=== PATIENT | female | born 1965 | race Caucasian/White ===

== ENCOUNTER 2016-12-23 07:43 | Emergency (ER) | payer BC ==
[2016-12-23 08:00] VITALS: BP 114/72
--- NOTE | 2016-12-23 12:12 | UC ---
Marilee Yuen Alok, scribed for Josselyn Shi DO on 12/23/16 at 0758 . Upper Extremity HPI - HPI Summary HPI Summary: 51F presents to the [facility] with decreased sensation described as dull/tingling on the left side of her body. Pt states her sensation is decreased but not absent entirely. Pt states that at 0630 this morning the pt woke up to a numbness in her left hand, followed by left arm, left cheek, left thigh, and left calf numbness minutes later after taking a shower. Her lower extremity numbness is described as on the outside of her thigh but circumferential from the knee to her toes. Pt also notes one episode of chest tightness three nights ago lasting one hour not accompanied by SOB, nausea, diaphoresis, dizziness or left neck/jaw /arm pain. Today, pt denies slurred speech or weakness. Originally pt denied confusion but reorted confusion half way through encounter. Pt denies SOB, cough, sore throat, abd pain, or eye drainage. Pt denies dizziness. PMHx includes recent L1 fracture 1 month ago for which she takes hydrocodone. Pt states took her hydrocodone this morning. Pt also takes Prozac for anxiety/ depression. Pt states she does not normally get decreased sensation with her anxiety. - History of Current Complaint Stated Complaint: NUMBNESS Hx Obtained From: Patient Onset/Duration: Lasting Hours, Still Present Severity Initially: Moderate Severity Currently: Moderate Pain Intensity: 0 Location Of Pain: Is Discrete @ - left hand, left leg, left cheek Character: Dull - numbness Aggravating Factor(s): Nothing Alleviating Factor(s): Nothing Associated Signs And Symptoms: Positive: Numbness/Tingling. Negative: Swelling , Redness, Bruising, Fever, Weakness - Allergies/Home Medications Allergies/Adverse Reactions: Allergies Allergy/AdvReac Type Severity Reaction Status Date / Time No Known Allergies Allergy Verified 11/18/13 11:11 Home Medications: Home Medications HYDROcodone/ACETAMIN 5-325 MG* [[place] 5-325 TAB*] 1 tab PO Q12HR PRN MDD 2 tabs 12/23/16 [History Confirmed 12/23/16] PMH/Surg Hx/FS Hx/Imm Hx Psychological History: Anxiety, Depression - Family History Known Family History: Positive: Hypertension, Diabetes, Other - Blood Clot - Social History Lives: With Family Alcohol Use: Occasionally Substance Use Type: None Smoking Status (MU): Never Smoked Tobacco Review of Systems Constitutional: Negative Skin: Negative ENT: Negative Respiratory: Negative Cardiovascular: Chest Pain Gastrointestinal: Negative Motor: Negative Neurovascular: Negative Neurological: Numbness All Other Systems Reviewed And Are Negative: Yes Physical Exam Triage Information Reviewed: Yes Appearance: Well-Appearing, No Pain Distress, Well-Nourished Vital Signs: Initial Vital Signs Temp 98.9 F 12/23/16 07:57 Pulse 79 12/23/16 07:57 Resp 18 12/23/16 07:57 BP 114/72 12/23/16 07:57 Pulse Ox 97 12/23/16 07:57 Vital Signs Reviewed: Yes Eyes: Positive: Conjunctiva Clear. Negative: Discharge ENT: Positive: Hearing grossly normal. Negative: Muffled/hoarse voice Neck: Positive: Supple, Nontender Respiratory: Positive: Lungs clear, Normal breath sounds, No respiratory distress, No accessory muscle use Cardiovascular: Positive: RRR, No Murmur Musculoskeletal Exam: Normal Neurological: Positive: Other: - A&Ox3, CN II-XII INTACT, SENSORY MOTOR INTACT, REFLEXES INTACT, NO CEREBELLAR SIGNS, FACIAL SYMMETRY, NEGATIVE ROMBERG, NORMAL GAIT Psychological Exam: Normal Psychological: Positive: Age Appropriate Behavior Skin Exam: Normal Skin: Positive: Other - warm, dry, normal color Diagnostics - EKG Cardiac Rate: NL - 77 bpm Cardiac Rhythm: Sinus: Normal - TIME: 0741. No ST depressions Upper Extremity Course/Dx - Differential Dx/Diagnosis Differential Diagnosis/HQI/PQRI: Other - cva, lyme, painic Provider Diagnoses: Paresthesia Discharge - Discharge Plan Condition: Stable Disposition: TRANS HIGHER L OF CARE FAC Referrals: Easton Cool MD [Primary Care Provider] - The documentation as recorded by the Marilee littlejohn Alok accurately reflects the service I personally performed and the decisions made by , Josselyn Shi DO.
== END 2016-12-23 08:07 | disposition short-term general hospital (02) ==
LOC: UCEAST 07:43
DX: F41.8 Other specified anxiety disorders (principal); R20.9 Unspecified disturbances of skin sensation
CPT/HCPCS: 93005; 99213; G0463

== ENCOUNTER 2016-12-23 08:28 | Observation (INO) | payer BC ==
[2016-12-23] MEDS ORDERED: NS 0.9% 1000 ML* 1,000 ML IV SCH (09:15)
[2016-12-23 09:24] LABS: Hematocrit 38 % (35-47); Hemoglobin 12.6 g/dl (12.0-16.0); Mean Corpuscular HGB Conc 33 g/dl (31-36); Mean Corpuscular Hemoglobin 29 pg (27-31); Mean Corpuscular Volume 86 fL (80-97); Mean Platelet Volume 8 um3 (7.4-10.4); Red Blood Count 4.43 10^6/ul (4.0-5.4); Red Cell Distribution Width 14 % (10.5-15); White Blood Count 5.3 10^3/ul (3.5-10.8)
[2016-12-23 09:36] LABS: Albumin 3.5 g/dL (3.2-5.2); BUN/Creatinine Ratio 15.5 (8-20); C Reactive Protein 2.41 mg/L (< 5.00); Calcium 9.4 mg/dL (8.6-10.3); EGFR African American 92.3 (>60); EGFR Non-African American 71.8 (>60); Globulin 3.5 g/dL (2-4); Magnesium 1.8 mg/dL (1.9-2.7); Total Bilirubin 0.9 mg/dL (0.2-1.0)
[2016-12-23 09:38] LABS: Potassium 3.4 mmol/L (3.5-5.0)
[2016-12-23 09:46] LABS: TSH (Thyroid Stimulating Horm) 1.51 mcIU/mL (0.34-5.60)
--- NOTE | 2016-12-23 09:47 | RAD ---
Indication: LEFT face, arm, leg numbness. Comparison: No relevant prior exams available on the [facility] for comparison. Technique: Noncontrast CT vertex of skull through foramen magnum. Report: The sulci, ventricles, and basal cisterns are normal for age. Johnson matter white matter differentiation is preserved without evidence for edema. No intra or extra axial hemorrhage, mass, or fluid collection detected. Unremarkable visualized orbital contents. Unremarkable calvarium and skull base. Unremarkable scalp. The visualized paranasal sinuses and mastoid air spaces are clear. IMPRESSION: No evidence for intracranial hemorrhage or compelling CT stigmata of ischemic stroke. Negative unenhanced head CT.
--- NOTE | 2016-12-23 09:53 | RAD ---
INDICATION: Left arm and leg numbness COMPARISON: November 18, 2013 TECHNIQUE: An AP portable view obtained at 0912 hours is submitted. FINDINGS: Bones/Soft Tissues: There are no acute bony findings. Cardiomediastinal: The cardiomediastinal silhouette is normal. Lungs: There are no infiltrates. Pleura: There are no pleural effusions. Other: None IMPRESSION: NO ACTIVE DISEASE.
[2016-12-23] MEDS ORDERED: Aspirin TAB* 325 MG PO ONE (10:32)
[2016-12-23] MEDS ORDERED: Ondansetron INJ* 2 MG/ML VIAL IV PRN (12:11)
[2016-12-23] MEDS ORDERED: Acetaminophen TAB* 325 MG PO PRN (12:11)
[2016-12-23] MEDS ORDERED: HYDROcodone/ACETAMIN 5-325 MG* 1 TAB PO PRN (12:13)
[2016-12-23] MEDS ORDERED: Potassium Chlor TAB* 20 MEQ TAB.ER PO ONE (12:14)
[2016-12-23] MEDS ORDERED: Magnesium Sulfate 2 GM IV* 2 GM/50 ML BAG IVPB ONE (12:14)
[2016-12-23] MEDS ORDERED: Iohexol 350* (CONTRAST) 500 ML MDV IV ONE (12:22)
--- NOTE | 2016-12-23 13:18 | RAD ---
Indication: Facial numbness and LEFT arm weakness. Comparison: December 23, [address] Technique: [employer] [place] 1.5 Jory [id number] with GEM suite. MRI brain without contrast. Report: Diffusion series is negative for acute or subacute ischemia. Susceptibility series is negative for stigmata of hemosiderin deposition to indicate previous hemorrhage. Unremarkable cerebral sulci, ventricles, and basal cisterns. Normal patterns of signal intensity throughout the cerebrum and posterior fossa. No intra or extra-axial lesions or fluid collections evident. Unremarkable orbital contents. Preserved major intracranial flow-voids. No suspicious lesion of the calvarium or skull base evident. 1.4 cm mucous retention cyst or polyp in the RIGHT maxillary sinus. Clear mastoid air spaces. Unremarkable scalp. IMPRESSION: No acute intracranial process evident. Negative unenhanced MRI of the brain.
--- NOTE | 2016-12-23 13:55 | RAD ---
INDICATION: TIA. LEFT arm numbness, numbness in the cheeks, lips. LEFT leg feels off. COMPARISON: Brain MRI and CT exams of the same date. TECHNIQUE: Multidetector CT images were obtained from the aortic arch to the vertex of the head with 79 mL Omnipaque 350 IV contrast. Arterial phase of enhancement. Multiplanar reformation including maximum intensity projection. 3-D arterial volume rendering. Stenosis estimations based on denominator of distal arterial diameter. NECK ANGIOGRAM REPORT: Variant common origin of the RIGHT brachiocephalic and LEFT common carotid arteries from the aortic arch. Negative for ostial stenosis. Unremarkable bilateral common and internal carotid arteries. No significant atherosclerotic plaque, stenosis, or dissection. Patent bilateral vertebral arteries with mild LEFT dominant. Both vertebral arteries contribute to the basilar artery. At C5-C6 dorsal disc osteophyte complex results in mild impression on the ventral margin of the thecal sac and uncinate process spurring results in moderate RIGHT unilateral foraminal stenosis. NECK ANGIOGRAM IMPRESSION: Negative for carotid or vertebral artery stenosis or occlusion. HEAD ANGIOGRAM REPORT: Unremarkable intracranial internal carotid arteries as well as the first and second segments of the middle cervical arteries. Patent dominant LEFT A1 anterior to artery segment and diminutive RIGHT A1 anterior cerebral artery segment. Patent anterior communicating artery. Unremarkable bilateral A2 anterior cerebral artery segments. Unremarkable basilar artery and cerebellar artery origins. Patent bilateral cerebral arteries with the LEFT supplied by the posterior circulation with normal variant hypoplastic LEFT posterior communicating artery. The RIGHT posterior cerebral artery is supplied primarily by the anterior circulation via a dominant posterior communicating artery with normal variant hypoplastic RIGHT P1 segment. No visualized intracranial aneurysms or vascular malformations. Patent major dural venous sinuses. HEAD ANGIOGRAM IMPRESSION: Normal variation without evidence for central intracranial arterial large vessel occlusion or stenosis. CPT II: CPT II Codes: 3100F
[2016-12-23] MEDS: Heparin VIAL(*) 5000 UNITS/ML VIAL (FIVE THOUSAND) SUBCUT SCH ×2 (15:48→21:42)
--- NOTE | 2016-12-23 15:52 | ED ---
Kendra Yuen Edward, scribed for Zenon Lovell MD on 12/23/16 at 0911 . Neurological HPI - HPI Summary HPI Summary: 51 y/o female BIBA via [facility] c/o tingling in the left hand that started this morning. The tingling became progressively worse throughout the morning and began radiating down her left leg. Associated sx: numbness in the left cheekbone , intermittent left knee spasms. Denies BARKER, weakness, difficulty walking, neck pain, blurred vision, slurred speech, CP, palpitations, change in diet, and fevers/chills. Patient also stated she had chest tightness 3 nights ago that lasted 20 minutes. PMHx depression, L1 burst fracture. - History of Current Complaint Chief Complaint: EDNeurologicalDeficit Stated Complaint: LT ARM/CHEEK NUMBNESS Time Seen by Provider: 12/23/16 08:50 Hx Obtained From: Patient Onset/Duration: Started hours ago - Symptoms started this morning when she woke up Timing: Constant Neurological Deficit Location: Facial - Numbness, LUE - Tingling Character: Numbness/Tingling Associated Signs and Symptoms: Positive: Numbness, Nothing - No dysuria, trouble defecating, cough, chills, or congestion. Negative: Unsteady Gait, Visual Changes, Headache, Weakness, Impaired Speech, Fever, Chest Pain, Palpitations, Change in Diet - Allergy/Home Medications Allergies/Adverse Reactions: Allergies Allergy/AdvReac Type Severity Reaction Status Date / Time No Known Allergies Allergy Verified 11/18/13 11:11 Home Medications: Home Medications FLUoxetine CAP* [PROzac CAP*] 20 mg PO DAILY 12/23/16 [History Confirmed ] Tizanidine HCl [Zanaflex] 4 mg PO QPM MDD 4 mg 12/23/16 [History Confirmed 12/23] PMH/Surg Hx/FS Hx/Imm Hx Previously Healthy: Yes Musculoskeletal History: Reports: Hx of Fracture(s) - L1 burst fracture Neurological History: Reports: Hx Headaches Comment Only: Other Neuro Impairments/Disorders - HX L5 COMP FX Psychiatric History: Reports: Hx Depression - Surgical History Surgery Procedure, Year, and Place: fertility related surgeries - Family History Known Family History: Positive: Diabetes - Social History Alcohol Use: Occasionally Substance Use Type: Reports: None Hx Tobacco Use: No Smoking Status (MU): Never Smoked Tobacco Review of Systems Constitutional: Negative Negative: Fever, Chills Eyes: Negative Negative: Blurred Vision ENT: Negative Cardiovascular: Negative Negative: Palpitations, Chest Pain Respiratory: Negative Negative: Cough Gastrointestinal: Negative Positive: Other - No change in diet Genitourinary: Negative Negative: dysuria Musculoskeletal: Other - Intermittent knee spasms Positive: Numbness - Tingling starting in the left hand radiating down left leg. Numbness near left cheekbone. Negative: Headache, Weakness Psychological: Normal All Other Systems Reviewed And Are Negative: Yes Physical Exam Triage Information Reviewed: Yes Vital Signs On Initial Exam: Initial Vitals Temp Pulse Resp BP Pulse Ox 97.5 F 67 16 114/70 96 12/23/16 08:28 12/23/16 08:28 12/23/16 08:28 12/23/16 08:28 12/23/16 08:28 Vital Signs Reviewed: Yes Appearance: Positive: Well-Appearing, No Pain Distress, Well-Nourished Skin: Positive: Warm, Skin Color Reflects Adequate Perfusion, Dry Head/Face: Positive: Normal Head/Face Inspection Eyes: Positive: Normal, EOMI, JEMMA ENT: Positive: Normal ENT inspection Neck: Positive: Supple, Nontender Respiratory/Lung Sounds: Positive: Clear to Auscultation, Breath Sounds Present Cardiovascular: Positive: RRR Abdomen Description: Positive: Nontender, Soft Bowel Sounds: Positive: Present Musculoskeletal: Positive: Normal, Strength/ROM Intact Neurological: Positive: Sensory/Motor Intact, Alert, Oriented to Person Place, Time, Other - NIH Stroke Scale - 1 point off for decreased sensation in the left side Psychiatric: Positive: Normal, Affect/Mood Appropriate - [place] Coma Scale Best Eye Response: 4 - Spontaneous Best Motor Response: 6 - Obeys Commands Best Verbal Response: 5 - Oriented Diagnostics - Vital Signs Vital Signs Temp Pulse Resp BP Pulse Ox 12/23/16 10:31 65 16 111/77 98 12/23/16 10:30 63 15 98 12/23/16 10:00 55 18 103/73 98 12/23/16 09:50 50 9 112/64 95 12/23/16 09:40 97.5 F 70 16 114/70 96 12/23/16 09:35 53 7 95 12/23/16 09:00 63 17 117/68 96 12/23/16 08:55 64 13 109/73 96 12/23/16 08:53 71 97 12/23/16 08:28 97.5 F 67 16 114/70 96 - Laboratory Lab Results: Lab Results 12/23/16 12/23/16 12/23/16 Range/Units 07:56 07:56 07:56 WBC 5.3 (3.5-10.8) 10^3/ul RBC 4.43 (4.0-5.4) 10^6/ul Hgb 12.6 (12.0-16.0) g/dl Hct 38 (35-47) % MCV 86 (80-97) fL MCH 29 (27-31) pg MCHC 33 (31-36) g/dl RDW 14 (10.5-15) % Plt Count 237 (150-450) 10^3/ul MPV 8 (7.4-10.4) um3 Neut % (Auto) 62.1 (38-83) % Lymph % (Auto) 26.7 (25-47) % [place] % (Auto) 6.8 (1-9) % Eos % (Auto) 2.4 (0-6) % Baso % (Auto) 2.0 (0-2) % Absolute Neuts (auto) 3.3 (1.5-7.7) 10^3/ul Absolute Lymphs (auto) 1.4 (1.0-4.8) 10^3/ul Absolute Monos (auto) 0.4 (0-0.8) 10^3/ul Absolute Eos (auto) 0.1 (0-0.6) 10^3/ul Absolute Basos (auto) 0.1 (0-0.2) 10^3/ul Absolute Nucleated RBC 0 10^3/ul Nucleated RBC % 0.1 INR (Anticoag Therapy) 0.92 (0.89-1.11) APTT 30.4 (26.0-36.3) seconds Sodium 136 (133-145) mmol/L Potassium 3.4 L (3.5-5.0) mmol/L Chloride 102 (101-111) mmol/L Carbon Dioxide 26 (22-32) mmol/L Anion Gap 8 (2-11) mmol/L BUN 13 (6-24) mg/dL Creatinine 0.84 (0.51-0.95) mg/dL Est GFR ( Amer) 92.3 (>60) Est GFR (Non-Af Amer) 71.8 (>60) BUN/Creatinine Ratio 15.5 (8-20) Glucose 71 (70-100) mg/dL Lactic Acid (0.5-2.0) mmol/L Calcium 9.4 (8.6-10.3) mg/dL Magnesium 1.8 L (1.9-2.7) mg/dL Total Bilirubin 0.90 (0.2-1.0) mg/dL AST 19 (13-39) U/L ALT 9 (7-52) U/L Alkaline Phosphatase 63 (34-104) U/L Troponin I 0.00 (<0.04) ng/mL C-Reactive Protein 2.41 (< 5.00) mg/L Total Protein 7.0 (6.4-8.9) g/dL Albumin 3.5 (3.2-5.2) g/dL Globulin 3.5 (2-4) g/dL Albumin/Globulin Ratio 1.0 (1-3) Lipase 26 (11.0-82.0) U/L TSH 1.51 (0.34-5.60) mcIU/mL 12/23/16 Range/Units 09:59 WBC (3.5-10.8) 10^3/ul RBC (4.0-5.4) 10^6/ul Hgb (12.0-16.0) g/dl Hct (35-47) % MCV (80-97) fL MCH (27-31) pg MCHC (31-36) g/dl RDW (10.5-15) % Plt Count (150-450) 10^3/ul MPV (7.4-10.4) um3 Neut % (Auto) (38-83) % Lymph % (Auto) (25-47) % [place] % (Auto) (1-9) % Eos % (Auto) (0-6) % Baso % (Auto) (0-2) % Absolute Neuts (auto) (1.5-7.7) 10^3/ul Absolute Lymphs (auto) (1.0-4.8) 10^3/ul Absolute Monos (auto) (0-0.8) 10^3/ul Absolute Eos (auto) (0-0.6) 10^3/ul Absolute Basos (auto) (0-0.2) 10^3/ul Absolute Nucleated RBC 10^3/ul Nucleated RBC % INR (Anticoag Therapy) (0.89-1.11) APTT (26.0-36.3) seconds Sodium (133-145) mmol/L Potassium (3.5-5.0) mmol/L Chloride (101-111) mmol/L Carbon Dioxide (22-32) mmol/L Anion Gap (2-11) mmol/L BUN (6-24) mg/dL Creatinine (0.51-0.95) mg/dL Est GFR ( Amer) (>60) Est GFR (Non-Af Amer) (>60) BUN/Creatinine Ratio (8-20) Glucose (70-100) mg/dL Lactic Acid 0.6 (0.5-2.0) mmol/L Calcium (8.6-10.3) mg/dL Magnesium (1.9-2.7) mg/dL Total Bilirubin (0.2-1.0) mg/dL AST (13-39) U/L ALT (7-52) U/L Alkaline Phosphatase (34-104) U/L Troponin I (<0.04) ng/mL C-Reactive Protein (< 5.00) mg/L Total Protein (6.4-8.9) g/dL Albumin (3.2-5.2) g/dL Globulin (2-4) g/dL Albumin/Globulin Ratio (1-3) Lipase (11.0-82.0) U/L TSH (0.34-5.60) mcIU/mL Result Diagrams: 12/23/16 07:56 12/23/16 07:56 Lab Statement: Any lab studies that have been ordered have been reviewed, and results considered in the medical decision making process. - Radiology CXR Xray Interpretation: No Acute Changes - no active disease Radiology Interpretation Completed By: Radiologist - CT BRAIN CT CT Interpretation: No Acute Changes - No evidence for intracranial hemorrhage or compelling CT stigmata of ischemic stroke. Negative unenhanced head CT. CT Interpretation Completed By: Radiologist - EKG 1 EKG Interpretation: 07:41 - NSR @ 77 bpm. Incomplete RBBB. Normal ST elevations. No ectopy Course/Dx - Course Course Of Treatment: NO CRITICAL CARE TIME. DISCUSSED WITH DR MALDONADO, NEUROLOGY , AND HOSPITALIST. ADMIT HOSPITALIST STABLE. - Diagnoses Provider Diagnoses: Left facial numbness, Left arm numbness, Left leg numbness Discharge - Discharge Plan Condition: Stable Disposition: ADMITTED TO [facility] documentation as recorded by the Kendra littlejohn Edward accurately reflects the service I personally performed and the decisions made by , Zenon Lovell MD.
--- NOTE | 2016-12-23 16:30 | HP ---
CC: Dr. Cool; Dr. Bedolla* HISTORY AND PHYSICAL: DATE OF ADMISSION: 12/23/16 PRIMARY CARE PROVIDER: Dr. Cool. ATTENDING PHYSICIAN: Kasia Olivera MD * (report dictated by Dequan Vargas NP ). CONSULTING NEUROLOGIST: Dr. Bedolla. CHIEF COMPLAINT: Left-sided numbness. HISTORY OF PRESENT ILLNESS: Ms. Sena is a 51-year-old female patient. She has a history of depression and she has chronic pain from an L1 burst fracture. She comes into the ER today, stating that she woke up this morning around 6:30 , she had numbness in her hand. She thought she slept on her own, but the numbness progressed up the left arm and down the left leg. She was concerned as this numbness was spreading. She described it starting in the hand, going up the arm and then down the left leg. She came in [facility] and they transferred her to the ER. She denied having any facial droop. She denied having any weakness to that left side. She denied having any trouble with her vision. She states that she has not been sick recently. She denied having any chest pain today. She denied having any shortness of breath or having any abdominal discomfort and denied having any trouble with her gait or walking. She came in to the ER today, was evaluated, there was concern because of the numbness to one side. This may represent CVA and the hospitalist service was asked to evaluate for admission. PAST MEDICAL HISTORY: Significant for: 1. Depression. 2. Chronic pain secondary to L1 burst fracture. PAST SURGICAL HISTORY: Denied. HOME MEDICATIONS: Include: 1. Prozac 40 mg daily. 2. [place] 1 tablet every 12 hours as needed. 3. Zanaflex 4 mg p.o. daily. ALLERGIES TO MEDICATIONS: Include no known drug allergies. FAMILY HISTORY: Mother has diabetes. Father's history is unknown. SOCIAL HISTORY: She occasionally drinks alcohol. She does not smoke. She is . Surrogate decision maker is her . REVIEW OF SYSTEMS: There is no documented fever. There was no significant weight change. There was no double vision. There was no ear discharge. There was no rhinorrhea. No sore throat. No thyroid enlargement. Denied having any chest pain. There was no orthopnea. There was no nocturnal dyspnea. There was no abdominal pain. No nausea, no vomiting. There was no dysuria. No frequency. No seizure. There was no loss of conscious. No pruritus. No skin ulcerations. Review of 14 systems was completed, all others negative. PHYSICAL EXAMINATION GENERAL: At this time, Ms. Sena is a 51-year-old female patient. She is sitting in the ER stretcher. She does not appear to be in any acute distress. She is well nourished, well developed. VITAL SIGNS: Blood pressure of 117/77 with a pulse of 65, respirations 16, O2 sat 98%, and temperature of 97.5. HEENT: Head is atraumatic and normocephalic. Eyes; EOMs are intact. Her sclerae were anicteric and not pale. Throat: Oral mucosa appears to be moist. No oropharyngeal erythema. NECK: Supple. LUNGS: Clear to auscultation bilaterally. No wheezes, rales, or rhonchi. HEART: Heart sounds S1 and S2. Regular rate and rhythm. No murmurs, rubs, or gallops. ABDOMEN: Soft, flat, and nontender. Bowel sounds present. EXTREMITIES: Pulses are 2+ throughout. She is able to move all 4 extremities with 5/5 strength. SKIN: Intact. NEUROLOGIC: She is awake. She is alert. She is oriented x3. Speech clear. Tongue midline. She has 5/5 strength throughout. She has no gross focal deficits. The only exception that she has is she has definitely a sensory deficit noted to the left lower extremity and left upper extremity. No other focal findings. LABORATORY DATA: Labs today revealed a WBC of 5.3, RBC of 4.43, hemoglobin of 12.6, hematocrit of 38, platelet count of 237,000. The INR was 0.92, PTT of 30.4. Sodium of 136, potassium 3.4, chloride 102, bicarb 26, BUN 13, creatinine 0.84, glucose 71, lactate 0.6, calcium 9.4, mag 1.8, total bili 0.9, AST 19, ALT 9, alk phos 63, troponin 0, TSH 1.51. IMAGING: She had a brain CT obtained today, which revealed no evidence of intracranial hemorrhage or compelling CT stigmata of ischemic stroke. Negative unenhanced CT of the head. Chest x-ray obtained today showed no active disease. There was a EKG obtained today, which showed a normal sinus rhythm with a rate of 74. No ST elevation or T-wave inversions were noted. It is reviewed to a previous EKG. This is an EKG from 4 years ago, appears to be unchanged. Old medical records were reviewed. ASSESSMENT AND PLAN: Ms. Sena is a 51-year-old female patient, coming in to the ER today with complaint of left-sided numbness to the face, arm, and lower extremity. The hospitalist service was asked to evaluate for admission. She will be admitted under observation status for: 1. Left-sided numbness. Again, etiology is unclear. At this point, certainly could possibly represent again a cerebro-vascular accident. At this point, Dr. Bedolla will be evaluating. Plan is to go ahead and get an MRI of the brain and in addition to this, we will get a CTA of the head and neck. In addition to this, we will also check a lipid panel, A1c, place her on telemetry. She did receive an aspirin and we will continue to follow closely. 2. Chronic pain. Continue medications as prescribed. 3. Depression. Continue Prozac. 4. DVT prophylaxis. She is moderate risk. We will place her on heparin subcu. 5. Code status: Full code. 6. Fluid, electrolytes, nutrition. She can have a heart-healthy diet. TIME SPENT: Time spent on the admission was approximately 60 minutes, of which greater than half the time was spent [id number] with the patient obtaining my history and physical; other half the time was spent going over the plan of care with the patient and implementing the plan of care. I discussed the plan of care with my attending, Dr. Olivera, she is in agreement. DEQUAN VARGAS, PORTER [id number]/[facility] #: [id number] CALLI
[2016-12-23] MEDS ORDERED: tiZANidine TAB* 2 MG PO SCH (21:00)
[2016-12-23 23:03] LABS: Urine Bacteria Absent (Absent); Urine Bilirubin Negative (Negative); Urine Glucose Negative (Negative); Urine Nitrite Negative (Negative)
[2016-12-24] MEDS ORDERED: NS 0.9% 1000 ML* 1,000 ML IV ONE (01:03)
--- NOTE | 2016-12-24 02:41 | CONS ---
NEUROLOGY CONSULTATION: DATE OF CONSULT: 12/23/16 LOCATION: The patient is an inpatient. REQUESTING PROVIDER: Dequan Vargas NP REASON FOR CONSULT: Left-sided numbness. HISTORY OF PRESENT ILLNESS: Mariana Sena is a 51-year-old woman with a history of depression and L1 burst fracture as a result of a fall resulting in chronic back pain, who presented to the emergency department this morning as a referral from [facility] after waking up with left hand numbness. She reports that she initially thought she just slept on the hand wrong but then it progressed further up her arm and involved her face and her leg as well. When she went to [facility] for evaluation, she was then referred to the emergency department out of concern for stroke. She denies any weakness or clumsiness with the left side. She denies any changes in her speech, vision difficulties or headache. She has had no recent fevers, chills, or systemic illness. She indicates that the symptoms have been coming and going throughout the day and she likens the sensation to when your foot falls asleep. At the time of my evaluation this afternoon, she was having symptoms in her left foot as well as her left face. Towards the end of the evaluation, she was having a patch on her posterior left thigh, which was experiencing paresthesias. She has never had any symptoms similar to this in the past. She does have a past history of migraine headaches but has never had any aura associated with migraines. PAST MEDICAL HISTORY: 1. Migraines. 2. Depression. 3. 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 4. Chronic pain. HOME MEDICATIONS: 1. Prozac 40 mg daily. 2. Redby every 12 hours as needed. 3. Zanaflex 4 mg daily. ALLERGIES: No known drug allergies. FAMILY HISTORY: Mother with diabetes. She denies any history of neurologic problems in the family or autoimmune disorders. SOCIAL HISTORY: She is employed in property management. She drinks alcohol occasionally. She is a nonsmoker. She is and her was with her at the time of the evaluation. REVIEW OF SYSTEMS: In addition to the HPI, she denied any recent skin rashes, joint swelling, new joint pains, recent tic bites or flu like illnesses. PHYSICAL EXAM: Vital Signs: Temperature 97.8, blood pressure 126/76, heart rate 65, oxygen saturation 100% on room air. On general examination, she is pleasant and in no acute distress. Heart is in regular rate and rhythm with no murmurs, rubs, or gallops. Lungs are clear to auscultation bilaterally. On neurologic examination, she has a normal mental status. Her speech is fluent without dysarthria or aphasia. On cranial nerve testing, pupils are equal, round, and reactive from 3 to 2 mm bilaterally. Versions are full without nystagmus. Cardenas are full to confrontation. Her face is symmetric with full strength. Facial sensation is diminished to light touch and temperature in the left V1 through V3 distributions by approximately 50%. She does not split the midline with testing. Hearing to intact to finger rub. Palate elevates symmetrically and the tongue is midline. Shoulder shrug is full and symmetric. On motor examination, she has normal bulk and tone in the upper and lower extremities. There is no pronator drift. Strength is full in the upper and lower extremities both proximally and distally. Sensation in the left upper extremity was diminished to light touch and temperature to approximately 50% in the hand and forearm circumferentially to the elbow but proximal to the elbow is felt normal. In her left lower extremity over the foot globally, she had similar diminished sensation but normal more proximally in the leg. Reflexes are 2+ in the upper extremities, 2 to 3+ at the knees, 2+ at the ankles, downgoing toes bilaterally. Ftolpl-rk-macy and [id number]-[id number]-[id number] are without ataxia. Romberg is negative. She is able to rise on to her heels and toes. DIAGNOSTIC STUDIES/LAB DATA: Laboratory data reviewed includes a CBC, which was normal, chemistry panel only notable for slightly low potassium and slightly low magnesium. TSH is 1.51. Coagulation studies are normal. She underwent neuroimaging studies including a brain CT as well as CTA of the head and neck and MRI of the brain. These studies were personally reviewed and were normal. IMPRESSION AND PLAN: Mariana Sena is a 51-year-old woman with a history of depression and chronic pain as well as migraine headaches, who presents for evaluation of intermittent numbness and tingling in the left arm, leg and face with the onset this morning upon awakening. There was initial concern for cerebrovascular event but her imaging has been normal. Though her symptoms have been somewhat intermittent, they have been persistent all day long and so if this was an ischemic event, I would expect to see some diffusion changes on the MRI. She has no systemic symptoms to suggest something infectious or inflammatory. At this point, I would like to check an MRI of her cervical spine though I recognize that any findings on this would not necessarily explain the symptoms in her face. I reassured her that at this point her workup has been negative for serious etiologies such as stroke, tumor, demyelinating disease. Thank you for this consultation. I will follow up on her MRI of the C-spine. [id number]/[facility] #: [id number] CALLI
[2016-12-24] MEDS: Heparin VIAL(*) 5000 UNITS/ML VIAL (FIVE THOUSAND) SUBCUT SCH (05:19)
[2016-12-24 06:18] LABS: Hematocrit 35 % (35-47); Hemoglobin 11.9 g/dl (12.0-16.0); Mean Corpuscular HGB Conc 34 g/dl (31-36); Mean Corpuscular Hemoglobin 29 pg (27-31); Mean Corpuscular Volume 87 fL (80-97); Mean Platelet Volume 8 um3 (7.4-10.4); Red Blood Count 4.07 10^6/ul (4.0-5.4); Red Cell Distribution Width 14 % (10.5-15); White Blood Count 5.3 10^3/ul (3.5-10.8)
[2016-12-24 06:32] LABS: BUN/Creatinine Ratio 11.8 (8-20); Calcium 8.2 mg/dL (8.6-10.3); EGFR African American 117.8 (>60); EGFR Non-African American 91.6 (>60); HDL Cholesterol 43.5 mg/dL
[2016-12-24 08:22] VITALS: BP 99/67
[2016-12-24] MEDS ORDERED: FLUoxetine CAP* 20 MG PO SCH (09:00)
[2016-12-24] MEDS ORDERED: Aspirin Low Dose CHEW TAB* 81 MG PO SCH (09:00)
--- NOTE | 2016-12-24 10:10 | RAD ---
Indication: Arm and leg paresthesias. Imaging sequences: Sagittal T1, T2, STIR, axial T1 and T2-weighted images of the lumbar spine were obtained. Vertebral bodies appear normal in height. There is straightening of the normal lordosis. At C2-C3 and C3-C4 no disc protrusion is identified. No central or foraminal stenosis. At C4-C5 no disc protrusion is noted. No central or foraminal stenosis. At C5-C6 degenerative disc disease with spondylytic ridge flattening the thecal sac is noted. There is a focal left posterior lateral disc protrusion which appears to narrow the left foramen and impinges upon the left exiting nerve root. There may also be some right uncovertebral joint hypertrophy narrowing the right foramen. At C6-C7 spondylitic ridge with central broad-based protrusion indents the thecal sac. No foraminal stenosis is identified. At C7-T1 disc space appears normal. IMPRESSION: Spondylitic ridge at C5-C6 with broad-based protrusion flattening the ventral spinal cord. There appears to be a far left lateral disc focal protrusion which impinges upon the left exiting nerve root in the foramen at this level. There is also right uncovertebral joint hypertrophy narrowing the right foramen. Degenerative disc disease at C6-C7 small to moderate central broad-based protrusion.
--- NOTE | 2016-12-24 13:18 | ECHO ---
Patient: CECI PHILLIPS [facility] Rec#: [id number] : 1965 Date: 12/24/2016 Age: 51y Height: 172.72 cm / 68.0 in Weight: 84.82 kg / 186.9 lbs Sex: F BSA: 1.99 Room#: [facility] Admit Date#: 12/23/2016 Type: Inpatient Referring: Dequan Vargas NP Reading: Jake Guillen MD Manager Garage: Hannah Sampson RDCS CC: Easton Cool MD Transthoracic Echocardiogram Indication: TIA BP: 91/59 HR: 63 Rhythm: NSR Findings History: Depression/anxiety. Technical Comments: The study quality is good. Completed at 0951. Left Ventricle: The left ventricular chamber size is normal. Global left ventricular wall motion and contractility are within normal limits. There is normal left ventricular systolic function. The estimated ejection fraction is 55-60%. There is no consistent Doppler evidence of clinically significant diastolic dysfunction. Left Atrium: The left atrium is mildly dilated. Right Ventricle: The right ventricular cavity size is normal. The right ventricular global systolic function is normal. Right Atrium: The right atrial cavity size is normal. There is no patent foramen ovale visualized. A patent foramen ovale is not demonstrated with color Doppler and agitated contrast. Aortic Valve: The aortic valve is trileaflet. There is no evidence of aortic regurgitation. There is no evidence of aortic stenosis. Mitral Valve: The mitral valve leaflets are mildly thickened. There is a trace of mitral regurgitation. Tricuspid Valve: The tricuspid valve leaflets are normal. There is trace tricuspid regurgitation. No pulmonary hypertension is noted. There is no tricuspid stenosis. Pulmonic Valve: The pulmonic valve appears normal. There is a trace pulmonic regurgitation. There is no pulmonic stenosis. Pericardium: There is no significant pericardial effusion. Aorta: There is no dilatation of the ascending aorta. There is no dilatation of the aortic arch. There is mild dilatation of the aortic root. Pulmonary Artery: The main pulmonary artery is not well visualized. Venous: The inferior vena cava appears normal in size. There is a greater than 50% respiratory change in the inferior vena cava dimension. Contrast: Normal saline was used as contrast for the bubble study. Intravenous contrast was used to help determine presence of intracardiac shunting. Conclusions There is normal left ventricular systolic function. The estimated ejection fraction is 55-60%. Global left ventricular wall motion and contractility are within normal limits. The left ventricular chamber size is normal. The left atrium is mildly dilated. Functionally benign heart valves. There is no patent foramen ovale noted. There is no prior echocardiogram available to compare with at this time. Measurements Name Value Normal Range RVIDd (AP) 2D 2.8 cm (0.9 - 2.6) RVDdMajor (2D) 2.9 cm (2.2 - 4.4) RAd ISD 4CH 4.5 cm (3.4 - 4.9) RA (A4C)W 3.6 cm (2.9 - 4.6) IVSd (2D) 1.1 cm (0.6 - 1) LVPWd (2D) 1.1 cm (0.6 - 1) LVIDd (2D) 4.1 cm (3.6 - 5.4) LVIDs (2D) 3.2 cm - LV FS (2D) 22 % (25 - 45) Aortic Annulus 1.8 cm (1.4 - 2.6) Ao root diameter (2D) 3.6 cm (2.1 - 3.5) Ascending Ao 3.2 cm (2.1 - 3.4) Aortic arch 3.2 cm (1.8 - 3.4) Descending Ao 0.5 cm - LA dimension (AP) 2D 3.2 cm (2.3 - 3.8) LAd ISD 4CH 5.5 cm (2.9 - 5.3) LA ISD 4CH W 3.1 cm (2.5 - 4.5) Name Value Normal Range LA ESV SP 4CH (A/L) 31 ml - LA ESV SP 2CH (A/L) 58 ml - LA ESV BP (A/L) 44 ml - LA ESV BP (A/L) index 22 ml/m2 - LA ESV SP 4CH (MOD) 30 ml - LA ESV SP 2CH (MOD) 55 ml - Name Value Normal Range MV E-wave Vmax 0.9 m/sec - MV deceleration time 238 msec - MV A-wave Vmax 0.6 m/sec - MV E:A ratio 1.52 ratio - LV septal e' Vmax 0.09 m/sec - LV lateral e' Vmax 0.13 m/sec - LV E:e' septal ratio 10 ratio - LV E:e' lateral ratio 14.44 ratio - Name Value Normal Range AV Vmax 1.4 m/sec - AV VTI 31.5 cm - AV peak gradient 7.85 mmHg - AV mean gradient 3.74 mmHg - LVOT Vmax 1.3 m/sec - LVOT VTI 30.9 cm - LVOT peak gradient 6.27 mmHg - LVOT mean gradient 2.84 mmHg - Name Value Normal Range TR Vmax 2.4 m/sec - TR peak gradient 24 mmHg - RAP 3 mmHg - RVSP 27 mmHg - IVC diameter 1.9 cm - Name Value Normal Range PV Vmax 0.7 m/sec - PV peak gradient 1.72 mmHg -
--- NOTE | 2016-12-25 14:58 | DS ---
CC: Dr. Cool; Dr. Bedolla DISCHARGE SUMMARY: DATE OF ADMISSION: 12/23/16 DATE OF DISCHARGE: 12/24/16 PRIMARY CARE PROVIDER: Easton Cool MD CONSULTING NEUROLOGIST: Ana Bedolla MD. DISCHARGE DIAGNOSIS: Left-sided paresthesia of unclear etiology. SECONDARY DIAGNOSES: 1. Depression. 2. Chronic back pain secondary to L1 burst fracture. HOSPITAL COURSE: Mrs. Sena is a 51-year-old lady with a past medical history as stated above, that presented to the emergency room on 12/23/16 complaining of left hand numbness that she had noticed when she woke up around 6 :30 in the morning. She felt maybe it could be sleep related, but then it started to spread to her left arm, down to her left leg, and also her face, so she decided to come to the emergency room for further evaluation. For more details about her presentation, I refer you to her history and physical. The patient was admitted for further workup. A CT of the brain without contrast showed no evidence for intracranial hemorrhage or compelling CT stigmata of ischemic stroke. MRI of the brain without contrast showed no acute intracranial process evident. It was a negative unenhanced MRI of the brain. CT of the head and neck showed no carotid or vertebral artery stenosis or occlusion and normal variation without evidence for central intracranial artery or large vessel occlusion or a stenosis. Cervical spine MRI showed spondylotic ridge at C5-C6, with broad- based protrusion flattening the thecal sac. There appears to be a far left lateral disk focal protrusion, which impinges upon the left exiting nerve root in the foramen at this level. There is also right uncovertebral joint hypertrophy narrowing the right foramen. Degenerative disk disease at C6-C7, [id number] central broad-based protrusion. These findings were discussed with Neurology and Dr. Bedolla felt that the etiology of her left-sided numbness was unclear, but she felt that a stroke had been ruled out and felt that the patient could be discharged home to continue her workup as outpatient. She recommended adding an STEVE and a vitamin B12 level to her labs and those results are pending at the time of this dictation, and she will be followed as outpatient. The patient had a normal hemoglobin A1c of 5.1. TSH was 1.5. A transthoracic echocardiogram showed normal left ventricular systolic function with ejection fraction of 55% to 60%, global left ventricular wall motion and contractility within normal limits. No PFO. The patient will be discharged home today to follow up with Dr. Cool in 4 to [address] Bedolla in 1 month. DIET: Regular diet. ACTIVITY: As tolerated. DISPOSITION: To home. STATUS WHILE IN THE HOSPITAL: Observation. Please keep in mind this is a summarized version of this patient's hospital stay. If you need more information, please feel free call me at [phone] or please obtain the full medical records. TIME SPENT: Approximately 45 minutes were spent to complete this discharge. [id number]/[facility] #: [id number]
== END 2016-12-24 13:36 | disposition home or self-care (01) ==
LOC: ED 08:28 → MEDTELE 10:35
PROVIDERS: ADMIT Internal Medicine; ATTEND Internal Medicine
DX: R20.9 Unspecified disturbances of skin sensation (principal); F32.9 Major depressive disorder, single episode, unspecified; M54.5 Low back pain; G89.29 Other chronic pain; M50.323 Other cervical disc degeneration at C6-C7 level; I51.7 Cardiomegaly; R07.9 Chest pain, unspecified; I45.10 Unspecified right bundle-branch block; Z79.899 Other long term (current) drug therapy
CPT/HCPCS: 36415; 70450; 70496; 70498; 70551; 71010; 72141; 80048; 80053; 80061; 81003; 81015; 82607; 83036; 83605; 83690; 83735; 84443; 84484; 85025; 85610; 85730; 86038; 86140; 93005; 93306; 96361; 96365; 96372; 99284; A9270-GY; G0378; J1644; Q9967